=== PATIENT | female | born 1950 | race Caucasian/White ===

== ENCOUNTER 2016-11-19 07:54 | Emergency (ER) | payer MEDICARE, BC ==
[2016-11-19] MEDS ORDERED: ASPIRIN 81 MG CHEW TAB ONE (08:16)
== END 2016-11-19 12:26 | disposition home or self-care (01) ==
LOC: ER 07:54
DX: R07.89 Other chest pain (principal); Z79.899 Other long term (current) drug therapy
CPT/HCPCS: 36415; 71010; 80053; 82550; 82553; 83735; 84484; 85025; 85610; 85730; 93005